=== PATIENT | female | born 2005 ===

== ENCOUNTER → 2025-02-06 09:30 | Outpatient (BNV) | payer OTHER, SELFPAY | PROVIDERS: Visit Provider Internal Medicine | DX: I49.3 Ventricular premature depolarization (principal); I49.49 Other premature depolarization | CPT/HCPCS: 93244 ==

== ENCOUNTER → 2025-02-06 09:30 | Outpatient (REF) | payer OTHER, SELFPAY ==
--- NOTE | 2025-02-06 | HM_ITS ---
* Total monitoring time 3 days. * Underlying rhythm is sinus with an average rate of 81/Min. * Rare supraventricular ectopy. * Rare ventricular ectopy. * No significant pauses or high-grade AV blocks. * Patient markers associated with sinus rhythm. * Symptoms in patient diary including dizziness, heartburn, chest discomfort associated with sinus rhythm and sinus tachycardia. MTDD
== END ==
LOC: HO.CARD 09:30
PROVIDERS: Visit Provider Emergency Medicine
DX: R55 Syncope and collapse (principal)
CPT/HCPCS: 93242